=== PATIENT | female | born 1945 | race Caucasian/White ===

== ENCOUNTER 2018-05-06 13:32 | Inpatient (IN) | payer OTHER ==
--- NOTE | 2018-05-06 14:02 | EDPHY ---
H & P Stated Complaint: Anxiety Source: Patient Exam Limitations: No limitations - Medical/Surgical History Hx Asthma: No Hx Chronic Respiratory Disease: No Hx Diabetes: No Hx Cardiac Disease: No Hx Renal Disease: No Hx Cirrhosis: No Hx Alcoholism: No Hx HIV/AIDS: No Hx Splenectomy or Spleen Trauma: No Other PMH: HTN, Hypercholesterol, tonsillectomy, has half thyroid ( half removed ) - Social History Smoking Status: Never smoked Time Seen by Provider: 05/06/18 14:01 HPI/ROS: HPI: This is a 73-year-old female who presents with Chief Complaint: Depression and anxiety Location: psych Quality: Depression and anxiety Duration: Since February Signs and Symptoms: no shortness of breath at rest, no shortness of breath on exertion, no cough, no chest pain, no palpitations, no lower extremity edema, no wheezing, no orthopnea, no paroxysmal nocturnal dyspnea, no fever, no injury/ trauma, no hemoptysis, no carpal pedal spasms Timing: acute on chronic Severity: Severe Context: Patient has a history of depression anxiety over the last 15 years not managed by psychiatric medications or counseling outpatient presents today at the urging of the crisis Center and her primary care provider as she went to them today complaining of worsening severe depression, hopelessness, insomnia, grief stricken. Patient reports that she does not feel safe going home by herself. Reports that in February she went to a half-way 7 are and realized that she had no savings no for 1 K no Rule half-way plan and works paycheck to [employer]. She takes care of her alcoholic brother who lives with her. Patient went to the crisis Center today who then directed her to her primary care provider to obtain medication. She reports that her primary care provider called in Prozac but she has not picked this up yet. Well in the office patient began to breakdown in reported to her primary care provider that she could not go on living and did not want to live. She also voiced that she did not feel safe going home by herself so the provider sent her to the emergency room for further evaluation. Patient reports that she has been to counseling at [facility] but only 2 sessions and has not felt like has been of great benefit. She tried to obtain a psychiatrist based on her insurance and there was only 1 psychiatrist within her insurance but they would not take patient is older than 65 years old. Modifying Factors: Comment: ROS: A comprehensive 10 system review of systems is otherwise negative aside from elements mentioned in the history of present illness. MEDICAL/SURGICAL/SOCIAL HISTORY: Medical history: Hypothyroidism, postmenopausal, hypertension, hypercholesteremia. 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 Nonsmoker. CONSTITUTIONAL: Overweight, flat affect elderly white female, tidy, cooperative , awake and alert, no obvious distress HEENT: Atraumatic and normocephalic, PERRL, EOMI. Nares patent; no rhinorrhea; no nasal mucosal edema. Tympanic membranes clear. Oropharynx clear, no exudate and moist pink mucosa. Airway patent. No lymphadenopathy. No meningismus. Cardiovascular: Normal S1/S2, regular rate, regular rhythm, without murmur rub or gallop. PULMONARY/CHEST: Symmetrical and nontender. Clear to auscultation bilaterally. Good air movement. No accessory muscle usage. ABDOMEN: Soft, nondistended, nontender, no rebound, no guarding, no peritoneal signs, no masses or organomegaly. No CVAT. EXTREMITIES: 2/2 pulses, strength 5/5, no deformities, no clubbing, no cyanosis or edema. NEUROLOGICAL: no focal neuro deficits. GCS 15. SKIN: Warm and dry, no erythema. no rash. Good capillary refill. PSYCH: Fair eye contact, no flight of ideas, relatively organized thought process, poor insight and judgment, no auditory hallucinations, no visual hallucinations, no suicidal ideation with a plan, no homicidal ideation, no paranoia (Murdock,Terra) Constitutional: Initial Vital Signs Temperature (C) 36.6 C 05/06/18 13:37 Heart Rate 100 05/06/18 13:37 Respiratory Rate 16 05/06/18 13:37 Blood Pressure 146/70 H 05/06/18 13:37 O2 Sat (%) 95 05/06/18 13:37 O2 Delivery Mode Room Air Allergies/Adverse Reactions: codeine Allergy (Verified 05/06/18 13:37) Penicillins Allergy (Verified 05/06/18 13:37) Home Medications: Medication Instructions Recorded Atorvastatin Calcium [Lipitor 10 10 mg PO DAILY@1800 05/06/18 mg (*)] Levothyroxine [Synthroid 125 mcg 125 mcg PO DAILY06 05/06/18 (*)] Valsartan 320 mg PO 1200 05/06/18 amLODIPine BESYLATE [Amlodipine 10 mg PO 1200 05/06/18 Besylate] Medical Decision Making - Diagnostics EKG Interpretation: EKG interpreted by me reveals normal sinus rhythm, rate 89, no ST or T segment changes. Interpretation: normal EKG (Kathie Govea) ED Course/Re-evaluation: 3:00 p.m.-I assumed care of this patient at shift change. She presents on an M1 hold with suicidal ideation and severe depression. She has been medically cleared. Mental health evaluation pending. 10:00 p.m.-this patient has been seen by mental health. Plan to admit to [address] [place] [address], accepted by Dr. García. EMTALA completed. (Kathie Govea) 1420: Placed on M1 hold due to severe major depression and suicidal thoughts without a plan. Labs and UDS ordered. P. O. Ativan 1 mg given 1544: Labs reviewed. No signs of leukocytosis/anemia/platelet dysfunction/ ARCENIO. Potassium 3.1- given oral potassium supplementation 40 mEq; creatinine 0.8 1623: Notified by RN that patient just give urine sample in requesting diet. Regular diet ordered. 1630: Urine drug screen shows positive benzodiazepines. Medically clear for mental health evaluation. 1700: End of shift. Signed over to Dr. Govea pending mental health evaluation and final disposition. This patient was seen under the supervision of my secondary supervising physician. I evaluated care for this patient with attending. Discussed this patient with Dr. Duron who did not see the patient. (Gabrielle Robbins) Differential Diagnosis: Differential diagnosis includes but is not limited to major depression, anxiety disorder, schizophrenia, bipolar disorder, intoxicant use, suicidal ideation, psychosis, eliza. (Gabrielle Robbins) - Data Points Laboratory Results: Laboratory Results 05/06/18 15:05 05/06/18 15:05 05/06/18 05/06/18 15:05 15:00 Free T4 3.02 ng/dL H ng/dL (0.59-2.19) Thyroxine (T4) 18.80 ug/dL H ug/dL (5.53-11.00) Free T3 4.85 pg/mL pg/mL (2.77-5.27) Total T3 1.320 ng/mL ng/mL (0.970-1.690) T3 Uptake 42.2 % H % (23.5-40.6) Miscellaneous Test Pending Medications Given: Amlodipine Besylate (Norvasc) 10 mg PO DAILY [facility] Stop: 11/03/18 08:59 Last Admin: 05/07/18 09:30 Dose: 10 mg Atorvastatin Calcium (Lipitor) 10 mg PO DAILY [facility] Stop: 11/03/18 08:59 Last Admin: 05/07/18 09:29 Dose: 10 mg Lorazepam (Ativan) 0.5 mg PO Q6 PRN PRN Reason: Anxiety, Able to Take PO Stop: 11/03/18 00:14 Last Admin: 05/07/18 13:31 Dose: 0.5 mg Valsartan (Diovan) 320 mg PO DAILY [facility] Stop: 11/03/18 08:59 Last Admin: 05/07/18 09:30 Dose: 320 mg Discontinued Medications Fluoxetine HCl (Prozac) 10 mg PO DAILY [facility] Stop: 11/03/18 08:59 Last Admin: 05/07/18 09:30 Dose: 10 mg Gabapentin (Neurontin) 100 mg PO TID [facility] Stop: 11/03/18 08:59 Last Admin: 05/07/18 09:29 Dose: 100 mg Levothyroxine Sodium (Synthroid) 125 mcg PO ONCE ONE Stop: 05/07/18 08:39 Last Admin: 05/07/18 09:20 Dose: Not Given Lorazepam (Ativan) 1 mg PO EDNOW ONE Stop: 05/06/18 14:22 Last Admin: 05/06/18 14:54 Dose: 1 mg Potassium Chloride (Klor-Con) 40 meq PO ONCE ONE Stop: 05/06/18 15:45 Last Admin: 05/06/18 16:02 Dose: 40 meq Departure - Departure Disposition: [facility] IP Clinical Impression: Severe major depression without psychotic features Condition: Fair
[2018-05-06] MEDS ORDERED: LORazepam 1 MG TAB PO ONE (14:21)
[2018-05-06 15:22] LABS: PLATELET COUNT 357 10^3/uL (150-400)
[2018-05-06] MEDS ORDERED: POTASSIUM CL 20 MEQ TAB PO ONE (15:44)
--- NOTE | 2018-05-06 22:00 | ASMTTLCEVL ---
TLC Evaluation - Basic Information Evaluation Start Date and 05/06/2018 08:45 PM Time Hospital Status Answers: M1 Hold 72-hr M1 Hold Start Date 05/06/2018 02:20 PM and Time Patient statement Notes: Peri been suffering from anxiety and depression for 15 years. Narrative Notes: Pt is a 73 year old female who presented to [facility] voluntarily complaining of worsening depression and anxiety over the last 15 years, not manage by psychiatric medications or counseling services. Pt was urged by the crisis center and her PCP as she went to them today complaining of her worsening depression, feelings of hopelessness, insomnia and grief. Pt reports she does not feel safe going home by herself. Pt reported that in February she attended a seminar on shelter and she realized she was not going to be able to retire and has no savings, works [employer]. She stated, this threw me into a spin. I had thoughts of fear and terror. Pt stated since then, she has had panic attacks every day, multiple times throughout the day. Pt states sometimes when she is at work she will start to shake so bad, she will have to take a break and go walk. Pt reports in the past, she has experienced feelings of depression and anxiety and she would take a couple days off from work and then she would be fine but this, she says, is very different. She also takes care of her alcoholic brother who lives with her. Her PCP called in a prescription or Prozac today but she has not yet picked it up. Pt has tried to get an appt with a psychiatrist but has only found one who carried her insurance and they will not accept patients older than 65. Pt denied any current Si but stated, I have thought, How am I going to come out of this? If I ever lose my job, I will be on the streets. Diagnosis History Notes: Pt has never formally been dx with a mental illness but reports she believes she has been depressed and anxious for the past 15 years. Prior suicide attempts Notes: Pt denied any prior suicide attempts. Prior hospitalizations Notes: Pt denied any prior hospitalizations. Treatment Responses Notes: N/A History of violence Notes: Pt denied any HI. Therapist: Pt has attended two sessions at [facility] but did not find them helpful. Psychiatrist: None Medications (name, dosage, route, freq uency) Notes: valsartan 320mg 1x day; lipitor 10mg; levothyroxine 125mcg amlodopine 10mg Allergies/Reaction Notes: Penicillin and codeine sulfate Sleep Notes: Pt stated her sleep is disruptive and reports having great difficulty staying asleep every night. Appetite Notes: Pt reports a decreased appetite and has lost 20lbs since February. Medical/Surgical history Notes: hyper cholesterol, tonsillectomy, has half thyroid (half-removed) Substance use history (frequency, intensity, his tory, duration) Notes: Pt denied any substance use or etoh use. Pts bal was.0. Pts utox was positive for benzodiazepines but pt was administered Ativan in the emergency department. Family composition Notes: Pts parents are . She has 1 younger brother who lives with her and a younger sister who lives in [place]. Need for family Answers: No participation in patient's care Family psychiatric/substance abuse history Notes: Pt stated she has a cousin who was an alcoholic and her brother is an alcoholic. Developmental history Notes: Pt grew up in [place] and reported having a very close relationship with her parents. Her younger brother had a disability and just two years ago and her sister is def. Pt states she spent most of her life caring for other people. Abuse concerns Answers: Past Marital status/children Notes: Pt never and has no children. Living situation Notes: Pt lives in [place] with her brother. Sexual history/orientation Notes: Unable to asses. Peer support/family strengths Notes: Pt stated she has no friends. Her only support is her brother who lives with her. Education level/history Notes: Pt has a nursing degree from [employer]. 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 Notes: None reported. 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 Collateral Notes: None Patient's strengths Answers: Artistic/Creative/Musical (Please select at least TWO strengths): Motivated for Treatment Willingness TLC Evaluation - Mental Status Exam Appearance: Answers: Appropriate Eye Contact: Answers: Good/Direct Mood: Answers: Sad Affect: Answers: Appropriate Behavior: Answers: Cooperative Anxious Speech: Answers: Relevant Logical Clear Coherent Thought Process: Answers: Organized Oriented Alert Intact Insight: Answers: Good Judgement: Answers: Good Depression Answers: Diminished Pleasure Signs/Symptoms: Hopelessness Sad Mood Anxiety Signs/Symptoms Answers: Generalized Anxiety Panic Attacks Hallucinations: Answers: None Pt reported to have Answers: No suicidal/self-injuring ideation/behavior? Pt reported to be making Answers: No suicidal/self-injuring threats? Pt reported to have Answers: No aggression/assault ideation/behavior? Pt exhibits inability to Answers: No care for self/grave disability? Ideation/behavior is Answers: Yes chronic? Patient has a specific Answers: No plan? Pt has access to means to Answers: No execute the plan? Ideation involves Answers: No serious/lethal intent? Ideation has Answers: No delusional/hallucinatory content? History of Answers: No suicidal/self-injuring ideation, behavior, or threats? History of Answers: No aggressive/assaultive ideation, behavior, or threats? History of serious Answers: No physical harm to self/others while in treatment setting? TLC Evaluation - Suicide/Homicide Risk Suicide Risk Factors: Answers: Anxiety/Panic, Severe Hopelessness Lack of Social Support Major Depression Single Unstable Living Situation Homicide/violence risk Answers: None factors: Current Suicidal Answers: No Ideation? Current Suicidal Ideation Answers: Yes in the Past 48 Hours? Current Suicidal Ideation Answers: No in the Past Month? Suicide Internal Answers: Absence of Psychosis Protective Factors: Mosque Beliefs Suicide External Answers: None Protective Factors: Ranking of patient's Answers: Moderate suicidal risk: Ranking of patient's Answers: Low homicidal risk: TLC Evaluation - Wrap-up AXIS I Diagnosis (include DSM-V and ICD-10 codes), must also be entered in [employer], which is the source of truth. Notes: Generalized Anxiety Disorder 300.02 (F41.1) Major Depressive Disorder, single episode, severe 296.23 (F32. In consultation with [facility] ED physician, Kathie Govea MD and on-call psychiatrist, Amanda García MD, both concurred that pt appears to meet 27-65 criteria requiring psychiatric hospitalization as pt appears to be at risk of harm to self due to a mental illness condition. Pt was given the 3N prohibited belongings list while in the ED. Evaluation End Date and 05/06/2018 10:00 PM Time (HH:MM): Date Signed: 05/06/2018 09:59 PM Electronically Signed By:Autumn Menjivar
--- NOTE | 2018-05-06 22:01 | ASMTTCLDSP ---
TLC Discharge Disposition Disposition: Answers: Admit Discharge Concerns/Recommendations: Notes: In consultation with [facility] ED physician, Kathie Govea MD and on-call psychiatrist, Amanda García MD, both concurred that pt appears to meet 27-65 criteria requiring psychiatric hospitalization as pt appears to be at risk of harm to self due to a mental illness condition. Pt was given the 3N prohibited belongings list while in the ED. Was patient given the Answers: Yes Inpatient Behavioral Health Prohibited Belongings List while in the ED? For inpatient Amanda García MD admission, the following psychiatrist agreed to accept patient for admission to Behavioral Health ([facility]): Date Signed: 05/06/2018 10:00 PM Electronically Signed By:Autumn Menjivar
--- NOTE | 2018-05-06 22:29 | CPEKG ---
Test Reason : OPEN Blood Pressure : / mmHG Vent. Rate : 089 BPM Atrial Rate : 090 BPM P-R Int : 125 ms QRS Dur : 089 ms QT Int : 360 ms P-R-T Axes : -05 029 001 degrees QTc Int : 439 ms Sinus rhythm Confirmed by Kathie Martin ([id number]) on 05/06/2018 10:29:07 PM Referred By: KATHIE MARTIN Confirmed By:Kathie Martin
[2018-05-07] MEDS ORDERED: LORazepam 0.5 MG TAB PO PRN ×2 (00:15→08:42)
[2018-05-07] MEDS ORDERED: MAG HYDROX/AL HYDROX/SIMETH 30 ML UDCUP PO PRN (00:15)
[2018-05-07] MEDS ORDERED: MAGNESIUM HYDROXIDE 30 ML UDCUP PO PRN (00:15)
[2018-05-07] MEDS ORDERED: ACETAMINOPHEN 325 MG TAB PO PRN (00:15)
[2018-05-07] MEDS ORDERED: NICOTINE POLACRILEX 2 MG GUM B PRN (00:15)
[2018-05-07] MEDS ORDERED: OLANZapine DISINTEGR 5 MG TAB PO PRN (00:15)
--- NOTE | 2018-05-07 06:22 | ASMTBHMTP ---
Master Treatment Plan Master Treatment Plan Answers: Depressed Mood without for: Suicidal Ideation Date: 05/07/2018 Diagnosis on Admission: Major Depressive Disorder, Single Episode, Severe 296.23 (F32); KEVIN 300.02 (F41.1) Expected length of stay: 3-5 days Reason for admission: Notes: Per Report: Pt is a 73 year old female who presented to [facility] voluntarily complaining of worsening depression and anxiety over the last 15 years, not manage by psychiatric medications or counseling services. Pt was urged by the crisis center and her PCP as she went to them today complaining of her worsening depression, feelings of hopelessness, insomnia and grief. Pt reports she does not feel safe going home by herself. Pt reported that in February she attended a seminar on longterm and she realized she was not going to be able to retire and has no savings, works paycheck to [employer]. She stated, this threw me into a spin. I had thoughts of fear and terror. Pt stated since then, she has had panic attacks every day, multiple times throughout the day. Pt states sometimes when she is at work she will start to shake so bad, she will have to take a break and go walk. Pt reports in the past, she has experienced feelings of depression and anxiety and she would take a couple days off from work and then she would be fine but this, she says, is very different. She also takes care of her alcoholic brother who lives with her. Her PCP called in a prescription or Prozac today but she has not yet picked it up. Pt has tried to get an appt with a psychiatrist but has only found one who carried her insurance and they will not accept patients older than 65. Pt denied any current Si but stated, I have thought, How am I going to come out of this? If I ever lose my job, I will be on the streets. Patient's stated presenting problems: Notes: "I [am] experiencing anxiety attacks and depression." Patient's goals for treatment: Notes: "[to] get rid of negative thoughts including 'fears'." Patient's strengths: Notes: "I am good at using my coping skills." Identify supports outside of hospital: Notes: Work friends and supports Discharge criteria: Notes: Suicidal Ideation will resolve and patient will have a plan to safely manage recurrent suicidal ideation. Initial disposition plan/considerations: Notes: Return home and to work Master Treatment Plan Required Signatures Psychiatrist signature: Answers: Psychiatrist: RN on-shift signature: Answers: RN: Patient signature: Answers: Patient: Date Signed: 05/07/2018 06:21 AM Electronically Signed By:Jeromy Johnson
[2018-05-07] MEDS ORDERED: LEVOTHYROXINE 137 MCG TAB PO ONE (08:38)
[2018-05-07] MEDS ORDERED: GABAPENTIN 100 MG CAP PO SCH (09:00)
[2018-05-07] MEDS ORDERED: FLUoxetine 10 MG CAP PO SCH (09:00)
[2018-05-07] MEDS: ATORVASTATIN CALCIUM 10 MG TAB PO SCH (09:29)
[2018-05-07] MEDS: VALSARTAN 160 MG TAB PO SCH (09:30)
[2018-05-07] MEDS: amLODIPine BESYLATE 5 MG TAB PO SCH (09:30)
--- NOTE | 2018-05-07 09:54 | BAPA ---
DATE OF SERVICE: 05/07/2018 CHIEF COMPLAINT: "Could no longer cope with my anxiety." HISTORY OF PRESENT ILLNESS: From the ED note dated 05/06/2018, patient with a history of depression and anxiety not managed by psychiatric medications presented to the emergency room at the urging of the Crisis Center and her primary care provider. Patient reported not feeling safe going home by herself. Patient was admitted involuntarily on an M1 hold due to being a danger to herself. Patient was hospitalized for safety, crisis stabilization, and medication evaluation. CIRCUMSTANCES THAT LED TO CURRENT HOSPITALIZATION: Patient reports exacerbation of depression and anxiety, feeling hopeless, insomnia, and grief. Patient reported that in February of 2018 she attended a seminar on jail, and she realized she was not going to be able to retire, has no savings, and works [email or web address] to [employer]. Patient reports this "threw me into a spin." Patient reported thoughts of fear and terror. Patient reports since then she has had panic attacks every day multiple times throughout the day. Patient states that sometimes when she is at work she begins shaking and has to take a break and go for a walk. Patient reports a history of depression and anxiety for 15 years. Patient reports she has never been formally diagnosed with a mental illness. Patient reports using no alcohol or other substances prior to her hospitalization. Patient reports sleeping only 4 hours per night. Reports she wakes up in the middle of the night, usually around 1 a.m., and begins to worry, ruminate, and is unable to sleep, and patient reports recent weight loss of 20 pounds since 2017. Patient describes current anxiety symptoms as excessive anxiety lasting more days than not for at least the last 6 months. Reports she finds it difficult to control her worry, is restless, easily keyed up, easily fatigued, difficulty concentrating, and sleep disturbance. Patient reports no history of abuse. Patient denies other psychiatric symptoms, including symptoms of depression, eliza, ADHD, OCD, PTSD, psychosis, and any other symptom of psychiatric disorder. 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 Patient reports having anxiety and panic attacks during work , is unable to function, has to leave work and go for a walk in order to return to work. Patient reports she currently has no friends. She goes to work, to the grocery store, and to doctor appointments and has no social support or support system. Patient reports she currently lives with her brother who abuses alcohol. She states she does get along well with her brother and reports she has 2 sisters who are out of state, and she is in contact with them periodically. Patient reports hobbies as reading and crossword puzzles and states she is unable to engage in these hobbies due to inability to concentrate. Patient states she is not generally satisfied with her life. Patient denies current suicidal ideation and reports protective factors or reasons to live as her scientology and family. Patient reports future goals as to get in touch with the case management social worker and work on jail planning. Patient reports she currently has no support network. Patient denies current homicidal ideation. Denies current self-injurious ideation. Patient reports she currently does not see a provider for psychiatric treatment on an outpatient basis and reports she has gone to a few counseling sessions through her employment at . Patient reports her primary care provider is Zia Diego with [employer] in [place], [place]. PAST PSYCHIATRIC HISTORY: The patient describes to this EMBOSSING PRESS OPERATOR the following psychiatric history: The patient reports no previous diagnoses of psychiatric conditions. Patient reports in the past a trial of Zoloft and reports she had no benefit from this medication for anxiety. Patient denies any history of psychiatric hospitalizations. Reports no history of withdrawal from drugs or alcohol. Patient reports no history of suicide attempts, no history of self- injurious behavior, and no history of trauma or abuse. ALLERGIES: 1. Codeine. 2. Penicillins. CURRENT MEDICATIONS: 1. Valsartan 320 mg p.o. q. day. 2. Ativan 0.5 mg p.o. q.6 hours p.r.n. 3. Gabapentin 100 mg p.o. t.i.d. 4. Prozac 10 mg p.o. q. day. 5. Lipitor 10 mg p.o. q. day. 6. Norvasc 10 mg p.o. q. day. 7. Tylenol 650 mg p.o. q.4 hours p.r.n. PAST MEDICAL HISTORY: Patient reports a history of high cholesterol, tonsillectomy, and has had half of her thyroid removed. Patient reports no history of neurological conditions, including organic brain disease, traumatic brain injury, or concussions. Patient reports no other history of major illnesses or major hospitalizations. SOCIAL HISTORY: Patient reports she was born and raised in [place] and reports having a close relationship with her parents. Patient had a younger brother with a disability, and patient's brother 2 years ago. Patient reports she has spent the majority of her life caring for other people, and she currently resides with her brother who abuses alcohol. Patient reports both her parents are . She has 1 younger brother who lives with her and a younger sister who lives in [place]. The patient reports also having a sister who resides in [place]. Patient reports she has never been and has no children. Currently lives in [place] with her brother. Patient states she has no friends and her only support is her brother who lives with her currently. 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 Patient reports no history of legal problems. 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 Patient reports she does enjoy reading and doing crossword puzzles. SUBSTANCE USE HISTORY: Patient reports no history of substance use or alcohol use. Patient's blood alcohol level at time of admission was 0. Patient's U- Tox was positive for benzodiazepines, and patient was administered Ativan in the emergency department. FAMILY PSYCHIATRIC HISTORY: Patient reports she has a cousin who abuses alcohol , and her brother whom she currently lives with also abuses alcohol. The patient reports no other family psychiatric history. ADMISSION LABS AND STUDIES: 1. CBC: Within normal limits except eosinophils were low at 0.5. 2. BMP: Within normal limits except potassium was low at 3.1, glucose was elevated at 105. 3. Hemoglobin A1c: Pending. 4. Liver function: Within normal limits except total bilirubin was elevated at 1.6, unconjugated bilirubin is elevated at 1.2. 5. Lipid panel: Triglycerides elevated at 138, cholesterol risk factor elevated at 1.6, LDL cholesterol calculated elevated at 141, LDL risk factor elevated at 1.2, VLDL cholesterol elevated at 28, non-HDL cholesterol elevated at 169, HDL cholesterol low at 38, LDL/HDL ratio is elevated at 3.72. Cholesterol/HDL ratio elevated at 5.45. 6. TSH: Low at 0.026. 7. Toxicology screen: Nonnegative for benzodiazepines, negative for all other substances screened, negative for ethyl alcohol. MENTAL STATUS EXAM: The patient is a well-nourished female looking stated chronological age. Attire is appropriate. Dress is hospital garb. Grooming status is appropriate. Ambulation is independent. Gait is normal and coordinated. Posture is normal and relaxed. Eye contact is appropriate and adequate. Motor activity is appropriate with purposeful, organized, coordinated movements with no involuntary movements noted. Attitude is cooperative and friendly. Patient appears attentive and relates well to this interviewer. Language production is spontaneous. Rate, rhythm, and volume are normal. Articulation is clear. Patient reports mood as anxious with congruent affect. Patient's thought process is linear and logical with no loose associations, tangential thought, thought blocking, concrete thinking, or any other signs of formal thought disorder. The patient does not report suicidal, homicidal thoughts, ideas, or plans. Patient denies auditory, visual hallucinations. Patient denies delusions. Patient does not appear to be attending to internal stimuli. Patient is oriented to person, place, time, and situation. Patient's attention and concentration are fair. The patient's insight and judgment are fair. There is no evidence of gross cognitive dysfunction at any point during the interview and no apparent dysfunction in recent or remote memory noted. The patient does not report undesirable side effects from current medications. DIAGNOSES: Based on the patient's history and current presentation, patient's diagnoses are: 1. Generalized anxiety disorder. 2. Rule out major depressive disorder with anxious distress. FORMULATION: Patient is a 73-year-old female, single, employed at , living in [place] with her brother who presents to the hospital involuntarily due to the risk to harm herself and is currently on an M1 hold. Patient requires continued inpatient care because of current severe anxiety and recent reports of the inability to feel safe at home. The patient presents with problems of increased stressors, severe anxiety, reports of depression at time of admission in the emergency room that have steadily been increasing over the past several months. Patient's life has been affected by these problems, including inability to feel safe alone. The exacerbation of symptoms was preceded by increased stressors regarding patient's financial situation for jail. Patient has no past formal psychiatric history. Patient is a high safety risk due to current severe anxiety and inability to feel safe. Protective factors while hospitalized include ongoing safety checks, active involvement in treatment, and support from our treatment team. Patient could benefit from inpatient hospitalization for safety, crisis stabilization, and medication evaluation. PLAN: 1. Psychotropic medications: After reviewing options, risks, and benefits with the patient, patient agrees to continue current medications listed above. No other medication changes at this time as more time is needed to determine ongoing tolerability and efficacy. Plan is to continue to observe patient for response and side effects from medications, and ongoing monitoring and evaluation. 2. Review with patient informed consent and recommendations for psychotropic medication treatment listed below 3. Labs: no additional labs at this time 4. Therapy: continue milieu and group therapy 5. Further investigation including gathering information from patients relatives and review of past case records to inform treatment plan. 6. Safety/Wellness plan and follow-up outpatient appointments to be established prior to discharge. Next steps are for patient to meet with home health care respiratory therapist to plan a safe discharge plan and establish outpatient services for ongoing treatment. 7. Confer with inpatient treatment team regarding treatment plan. 8. Address psychosocial stressors by meeting with primary care sales representative to establish discharge plan including referrals for outpatient services. 9. Legal status: M1 10. Consider discharge on Saturday if patient is in stable condition, safe, and has a safe discharge plan. ESTIMATED LENGTH OF STAY: 1-3 days PSYCHOTROPIC MEDICATION TREATMENT INFORMED CONSENT and RECOMMENDATIONS: Review nature of condition, diagnosis, and prognosis. Review nature and purpose of psychotropic medication treatment. Review type of psychotropic medications being ordered. Review risk and benefits of psychotropic medication treatment. Review probable length of time will need to take medications. Review risk and benefits of not undergoing psychotropic medication treatment. Review alternative treatments to psychotropic medications. Review psychotropic medications contraindications, drug-drug interactions, side effects, and importance of reporting any side effects to a psychiatric provider or nurse during inpatient hospitalization, and upon discharge to patients psychiatric outpatient provider, primary care provider, or other health doggy daycare activities director. Review importance of asking a nurse, psychiatric provider, or primary care provider any questions or problems concerning the psychotropic medications. Verify patient understands the information that has been provided, and understands, accepts, and agrees to psychotropic medications. Review patients safety plan and importance of patient to communicate to staff while hospitalized if patient is ever a danger to self/others, or unable to care for self, and upon discharge, the importance for patient to contact [facility] [place] [facility] or [facility], or go to the nearest emergency room, if patient is ever a danger to self/others, or unable to care for self. Recommend that upon discharge patient establish medication management treatment with a psychiatric provider, establishes routine therapy appointments, and follow-up with primary care provider. Verify patient understands and agrees to these recommendations. /[id number]/MODL MTDD
--- NOTE | 2018-05-07 23:41 | BCON ---
INTERNAL MEDICINE CONSULTATION DATE OF CONSULTATION: 05/07/2018 REASON FOR REFERRAL: Medical clearance for inpatient behavioral health stay. HISTORY OF PRESENT ILLNESS: This patient came to the emergency department yesterday complaining of worsening depression and anxiety and not feeling safe to go home. She was referred by a mental health crisis center and her primary care provider. She was evaluated by the mental health team and admitted for further psychiatric care. Today she is complaining of anxiety. PAST MEDICAL HISTORY: 1. Hypothyroidism. 2. Thyroid nodules. 3. Hypertension. 4. Dyslipidemia. PAST SURGICAL HISTORY: She has had tonsillectomy and a partial thyroidectomy. MEDICATIONS PRIOR TO ADMISSION: 1. Amlodipine 10 mg p.o. daily at noon. 2. Valsartan 320 mg p.o. daily at noon. 3. Levothyroxine 125 mcg p.o. daily. 4. Atorvastatin 10 mg p.o. daily at 1800. SOCIAL HISTORY: She lives with her brother. 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 She is a nonsmoker and nondrinker. FAMILY HISTORY: Noncontributory. REVIEW OF SYSTEMS: She denies any symptoms consistent with hyperthyroidism. She does not feel hot. She is not sweaty. She does not have increased appetite. She does not have increased rate of defecation. She does not have a tremor. She reports approximately a 20-pound weight loss since February with reduced food and fluid intake. She has had reduced bowel movements and reduced urination as a result. She is not in pain. She denies cough or dyspnea. She denies nausea or vomiting. She denies palpitations or chest pain. She denies joint swelling or joint pain. She denies skin rash or skin breakdown. She has not experienced muscle weakness. Otherwise, a 10-point review of systems is negative. PHYSICAL EXAM: VITAL SIGNS: Blood pressure is 136/60, heart rate is 99, respiratory rate is 14, oxygen saturation is 93% on room air, temperature is 36.8 degrees centigrade. Her weight is 86.2 kg for a body mass index of 34.8. GENERAL: This is an obese woman dressed in hospital gown, sitting in a chair, cooperative and in no acute distress. HEENT: Extraocular movements are intact. Pupils are equal, round, and reactive to light. Mucous membranes are moist. Dentition is in good condition. NECK: Supple. There is no thyromegaly. The thyroid is palpable on the left but not on the right side of her neck. HEART: There is regular rate and rhythm. Heart sounds are distant. LUNGS: Clear to auscultation bilaterally. ABDOMEN: Benign. EXTREMITIES: There is no cyanosis or clubbing. There is trace edema bilaterally pretibially. NEUROLOGIC: She is alert and oriented x3. Cranial nerves 2-12 are grossly intact. There is no focal weakness, and sensation is intact to light touch. LABORATORY STUDIES: From yesterday and today, CBC was overall normal. She had a slight decrement of eosinophils of no clinical significance. Serum chemistry revealed hypokalemia with a potassium of 3.1. Otherwise renal function and electrolytes were normal. Glucose was slightly high at 105. Hemoglobin A1c was high at 6.4, total bilirubin was high at 1.6, and unconjugated bilirubin was slightly high as well at 1.2. Liver function tests were otherwise normal. Lipid panel revealed a slightly elevated triglycerides at 138, a normal cholesterol at 207, an elevated LDL at 141, and a low HDL at 38. TSH was suppressed at 0.26, free T4 was slightly high at 3.02, and T4 was significantly high at 18.8. Toxicology screen in the serum was negative for ethyl alcohol, and urine was non-negative for benzodiazepines but otherwise negative for substances of abuse. ASSESSMENT AND RECOMMENDATIONS: 1. Mental health issues pending further evaluation and management per Psychiatry and the mental health team. 2. Hypertension, adequately controlled. 3. Hypothyroidism with likely iatrogenic hyperthyroidism. With her history of thyroid nodules it is conceivable that she has an overactive nodule that was not palpable on exam which along with her thyroid supplementation would make her hyperthyroid. Alternately due to her depression and weight loss she may now be receiving a higher thyroid dose than she should. I am going to resume her thyroid medication with levothyroxine at 100 mcg daily instead of 125 mcg and advise that she follow up in 4-6 weeks with her primary care provider regarding her optimal dose. I have also ordered a thyroglobulin test which is referral test to be done by mass spectroscopy at the [facility]. If she has a low thyroglobulin it is consistent with taking too much thyroid hormone. If she has a normal or high thyroglobulin it is more consistent with endogenous excess thyroid production. In that case, she would be best treated by discontinuing her levothyroxine and referral to an floral arranger for further evaluation. It is conceivable that her hyperthyroidism is contributing to her anxiety symptoms. 4. Dyslipidemia. Appears to be inadequately managed at present with a high LDL cholesterol of 141. She should consider increasing her atorvastatin dose. This can be done by her primary care provider after her discharge. 5. Prediabetes. It could be that when she was 20 pounds heavier she had emily diabetes mellitus type 2. Encouraged increased exercise which would also improve her lipid panel and advised consultation with the dietitian regarding weight loss. 6. Hypokalemia of unclear etiology. May be related to hyperadrenergic state due to her mental health condition or due to excess thyroid hormone. I have ordered a repeat basic metabolic profile for tomorrow morning to evaluate whether she continues to be hypokalemic. I see no medical contraindications to this patient's continued stay on the inpatient behavioral health unit or to any psychiatric medications or procedures. Thank you very much for including me in the care of this patient and please do not hesitate to contact me or the hospitalist service should there be need for further medical evaluation. /[id number]/MODL MTDD
[2018-05-08] MEDS: LEVOTHYROXINE 100 MCG TAB PO SCH (05:59)
[2018-05-08] MEDS ORDERED: LEVOTHYROXINE 125 MCG TAB PO SCH (06:00)
[2018-05-08] MEDS: ESCITALOPRAM OXALATE 10 MG TAB PO SCH ×2 (08:35→13:01)
[2018-05-08] MEDS: VALSARTAN 160 MG TAB PO SCH ×3 (09:53→13:25)
--- NOTE | 2018-05-08 11:28 | SOAPPROG ---
SOAP Progress Note Assessment/Plan: Assessment: Generalized Anxiety Disorder. R/O Major Depressive Disorder with Anxious Distress. Continued severe anxiety. No improvement noted. (see subjective/ objective note). Patient could benefit from continued inpatient hospitalization for crisis stabilization, safety, and medication evaluation. Consider discharge tomorrow if patient is stable and has a safe discharge plan. Plan: 1. Psychotropic medications: After reviewing options, risks, and benefits patient agrees to continue current medications. No medication changes at this time as more time is needed to determine ongoing tolerability and efficacy. Plan is to continue to observe patient for response and side effects from medications, and ongoing monitoring and evaluation. 2. Review with patient informed consent and recommendations for psychotropic medication treatment listed below 3. Labs: no additional labs at this time 4. Therapy: continue milieu and group therapy 5. Further investigation including gathering information from patients relatives and review of past case records to inform treatment plan. 6. Safety/Wellness plan and follow-up outpatient appointments to be established prior to discharge. Next steps are for patient to meet with home health care coordinator to plan a safe discharge plan and establish outpatient services for ongoing treatment. 7. Confer with inpatient treatment team regarding treatment plan. 8. Psychosocial stressors addressed through director case management 9. Legal status: M1 10. Consider discharge on Saturday if patient is in stable condition, safe, and has a safe discharge plan. PSYCHOTROPIC MEDICATION TREATMENT INFORMED CONSENT and RECOMMENDATIONS: Review nature of condition, diagnosis, and prognosis. Review nature and purpose of psychotropic medication treatment. Review type of psychotropic medications being ordered. Review risk and benefits of psychotropic medication treatment. Review probable length of time patient will need to take medications. Review risk and benefits of not undergoing psychotropic medication treatment. Review alternative treatments to psychotropic medications. Review psychotropic medications contraindications, drug-drug interactions, side effects, and importance of reporting any side effects to a psychiatric provider or nurse during inpatient hospitalization, and upon discharge to patients psychiatric outpatient provider, primary care provider, or other health home care chaplain. Review importance of asking a nurse, psychiatric provider, or primary care provider any questions or problems concerning the psychotropic medications. Verify patient understands the information that has been provided, and understands, accepts, and agrees to psychotropic medications. Review patients safety plan and importance of patient to report to staff while hospitalized if patient is ever a danger to self/others, or unable to care for self, and upon discharge, the importance for patient to contact [facility] or [facility], or go to the nearest emergency room, if patient is ever a danger to self/others, or unable to care for self. Recommend that upon discharge patient establish medication management treatment with a psychiatric provider, establishes routine therapy appointments, and follow-up with primary care provider. Verify patient understands and agrees to these recommendations. 05/08/18 11:27 Subjective: Following up with patient for evaluation of depression, anxiety, and safety. Patient reports, "Feel so anxious, not sure what I am going to do about all of this." Patient expresses the following psychiatric symptoms severe anxiety. Patient reports taking medications as prescribed, and describes response to medications as poor. Patient reports feeling "light headed, dizzy" after taking Gabapentin 100 mg and Prozac 10 mg, and requests to discontinue these medications. This CHANNELER discusses psychotropic medication options, risks, and benefits with the patient. Patient agrees to trial of Lexapro 10 mg po QD. Patient describes getting 8 hours of sleep, and reports feeling rested. Objective: Vital Signs Temp Pulse Resp BP Pulse Ox 36.4 C 87 14 112/57 L 95 05/08/18 06:00 05/08/18 10:01 05/08/18 06:00 05/08/18 10:01 05/08/18 10:01 NURSING REPORT: Consulted with nursing for update on patients progress in treatment. Nurses report patient is engaged in treatment, is attending groups, slept 8 hours, expresses the following psychiatric symptoms: anxious, exhibits the following psychiatric symptoms: none, is eating all meals, is agreeable to medications and taking as prescribed with no report of side effects, with no s/ s of EPS/akathisia, and denies SI/HI, denies A/V hallucinations, and denies delusions. MSE: The patient presents casually dressed and with good hygiene, and looks stated age. Patient is sitting, posture is upright, and position is relaxed. Patient appears awake, alert, and responds appropriately and reasonably during interview. Patient is engaged, relates well to interviewer, and emotional facial expression is appropriate to situation and changes appropriately with topic. Patient is cooperative, makes comfortable eye contact, and movements are voluntary, deliberate, coordinated, and smooth and even with no inappropriate movements. Patient makes laryngeal sounds effortlessly and shares conversation appropriately; pace of conversation is appropriate, and stream of talking is fluent; articulation is clear and understandable; word choice is effortless and appropriate for education level; completes sentences, occasionally pausing to think; rate and volume are appropriate for interview and setting. Patient reports mood as anxious. Patients affect is congruent with mood. Patient has linear and logical thinking, with no loose associations , tangential thought, thought blocking, concrete thinking, or any other signs of formal thought disorder. Patient denies suicidal and homicidal ideation, and denies hallucinations and delusions. Patient appears to be a reliable historian with sound judgement and good insight into current condition. Patient has no apparent dysfunction in recent or remote memory noted, and no evidence of gross cognitive dysfunction noted at any point during the interview. - Time Spent With Patient Time Spent With Patient: 15 minutes, met with patient individually. - Pending Discharge Pending Discharge Within 24 Hours: No Pending Discharge Within 48 Hours: No ICD10 Worksheet Patient Problems: Problems Problem Status Onset Severe major depression without psychotic features Acute
[2018-05-08] MEDS ORDERED: amLODIPine BESYLATE 5 MG TAB PO SCH (12:30)
[2018-05-08] MEDS ORDERED: VALSARTAN 160 MG TAB PO SCH (12:30)
[2018-05-08] MEDS: amLODIPine BESYLATE 5 MG TAB PO SCH ×2 (12:59→13:26)
[2018-05-08] MEDS: ATORVASTATIN CALCIUM 10 MG TAB PO SCH ×2 (13:29→19:59)
[2018-05-09] MEDS: LEVOTHYROXINE 100 MCG TAB PO SCH (05:58)
[2018-05-09] MEDS ORDERED: clonazePAM 0.5 MG TAB PO ONE (07:49)
[2018-05-09] MEDS: ESCITALOPRAM OXALATE 10 MG TAB PO SCH (08:24)
--- NOTE | 2018-05-09 08:32 | ASMTCMCOM ---
CM Note CM Note Notes: CC met with ct. who presented as very anxious and helpless. Ct. reported that she is not doing well due to anxiety. CC discussed setting up an appointment with PCP Dr. Diego ahead of discharge so that PCP can continue to prescribe meds. Ct. refused to sign NEGRITO and/or scheduling an appointment saying that she exhausted her sick time and cannot take any time off. CC explained that ct. would need to set up an appointment and ct. agreed to do it after discharge. Ct. has an appointment with her [facility] therapist Ifrah on 05/15. Ct. also discussed not having any friends or people who care for her. She said that she needs someone who would be her friend and come meet with her at home. She said that CC Denys gave her the number to [facility] services. This CC encouraged ct. to call and follow up with them but she refused saying that she is too anxious. Discharge Plan: ct. will meet with her therapist Ifrah on 05/15. Date Signed: 05/09/2018 08:31 AM Electronically Signed By:Haleigh Arshad
--- NOTE | 2018-05-09 11:06 | SOAPPROG ---
SOAP Progress Note Assessment/Plan: Assessment: Generalized Anxiety Disorder. R/O Major Depressive Disorder with Anxious Distress. Continued severe anxiety. No improvement noted. (see subjective/ objective note). Patient could benefit from continued inpatient hospitalization for crisis stabilization, safety, and medication evaluation. Plan: 1. Psychotropic medications: After reviewing options, risks, and benefits patient agrees to continue current medications. DC Klonipin and restart Ativan 0.5 mg po Q6HRS PRN. No other medication changes at this time as more time is needed to determine ongoing tolerability and efficacy. Plan is to continue to observe patient for response and side effects from medications, and ongoing monitoring and evaluation. 2. Review with patient informed consent and recommendations for psychotropic medication treatment listed below 3. Labs: no additional labs at this time 4. Therapy: continue milieu and group therapy 5. Further investigation including gathering information from patients relatives and review of past case records to inform treatment plan. 6. Safety/Wellness plan and follow-up outpatient appointments to be established prior to discharge. Next steps are for patient to meet with care assistant to plan a safe discharge plan and establish outpatient services for ongoing treatment. 7. Confer with inpatient treatment team regarding treatment plan. 8. Psychosocial stressors addressed through binder caser 9. Legal status: voluntary 10. Consider discharge on Saturday if patient is in stable condition, safe, and has a safe discharge plan. PSYCHOTROPIC MEDICATION TREATMENT INFORMED CONSENT and RECOMMENDATIONS: Review nature of condition, diagnosis, and prognosis. Review nature and purpose of psychotropic medication treatment. Review type of psychotropic medications being ordered. Review risk and benefits of psychotropic medication treatment. Review probable length of time patient will need to take medications. Review risk and benefits of not undergoing psychotropic medication treatment. Review alternative treatments to psychotropic medications. Review psychotropic medications contraindications, drug-drug interactions, side effects, and importance of reporting any side effects to a psychiatric provider or nurse during inpatient hospitalization, and upon discharge to patients psychiatric outpatient provider, primary care provider, or other health healthcare economics consultant. Review importance of asking a nurse, psychiatric provider, or primary care provider any questions or problems concerning the psychotropic medications. Verify patient understands the information that has been provided, and understands, accepts, and agrees to psychotropic medications. Review patients safety plan and importance of patient to report to staff while hospitalized if patient is ever a danger to self/others, or unable to care for self, and upon discharge, the importance for patient to contact [facility] or 911, or go to the nearest emergency room, if patient is ever a danger to self/others, or unable to care for self. Recommend that upon discharge patient establish medication management treatment with a psychiatric provider, establishes routine therapy appointments, and follow-up with primary care provider. Verify patient understands and agrees to these recommendations. 05/09/18 11:09 Subjective: Following up with patient for evaluation of anxiety and safety. Patient reports , "Still feel really anxious. Just don't think I can cope. Just want to sign a piece a paper and leave all this to someone else. Feeling overwhelmed, don't think I can do this." Patient expresses the following psychiatric symptoms severe anxiety. Patient reports taking medications as prescribed, and describes response to medications as poor. Patient reports feeling sedated from Klonopin, and reports better response from Ativan. Patient agrees to DC Klonipin and start Ativan 0.5 mg po Q6HRS PRN. Patient agrees to continue Lexapro 10 mg po QD. Objective: Vital Signs Temp Pulse Resp BP Pulse Ox 36.6 C 89 16 131/62 H 93 05/09/18 06:00 05/09/18 06:00 05/09/18 06:00 05/09/18 06:00 05/09/18 06:00 Laboratory Results 05/08/18 06:00 NURSING REPORT: Consulted with nursing for update on patients progress in treatment. Nurses report patient is engaged in treatment, is attending groups, slept 8 hours, expresses the following psychiatric symptoms: anxious, exhibits the following psychiatric symptoms: none, is eating all meals, is agreeable to medications and taking as prescribed with no report of side effects, with no s/ s of EPS/akathisia, and denies SI/HI, denies A/V hallucinations, and denies delusions. TREATMENT TEAM CONSENSUS: Patient is not stable and could benefit from continued hospitalization. MSE: The patient presents casually dressed and with good hygiene, and looks stated age. Patient is sitting, posture is upright, and position is relaxed. Patient appears awake, alert, and responds appropriately and reasonably during interview. Patient is engaged, relates well to interviewer, and emotional facial expression is appropriate to situation and changes appropriately with topic. Patient is cooperative, makes comfortable eye contact, and movements are voluntary, deliberate, coordinated, and smooth and even with no inappropriate movements. Patient makes laryngeal sounds effortlessly and shares conversation appropriately; pace of conversation is appropriate, and stream of talking is fluent; articulation is clear and understandable; word choice is effortless and appropriate for education level; completes sentences, occasionally pausing to think; rate and volume are appropriate for interview and setting. Patient reports mood as anxious. Patients affect is congruent with mood. Patient has linear and logical thinking, with no loose associations , tangential thought, thought blocking, concrete thinking, or any other signs of formal thought disorder. Patient denies suicidal and homicidal ideation, and denies hallucinations and delusions. Patient appears to be a reliable historian with poor judgement and poor insight into current condition. Patient has no apparent dysfunction in recent or remote memory noted, and no evidence of gross cognitive dysfunction noted at any point during the interview. - Time Spent With Patient Time Spent With Patient: 30 minutes, met with patient individually and met with patient and treatment team. - Pending Discharge Pending Discharge Within 24 Hours: No Pending Discharge Within 48 Hours: No ICD10 Worksheet Patient Problems: Problems Problem Status Onset Severe major depression without psychotic features Acute
[2018-05-09] MEDS ORDERED: LORazepam 0.5 MG TAB PO PRN (11:11)
--- NOTE | 2018-05-09 11:33 | ASMTBHDC ---
Notes Note: Notes: CC called [employer] Program at [facility] and spoke with Genna programmer business. Per Genna ct. is eligible for the program. She requested ct. call her to start enrollment process. CC spoke with ct. and provided the information but ct. said that she cannot make the call as she is too overwhelmed CC suggested calling with ct. but she refused. Date Signed: 05/09/2018 11:31 AM Electronically Signed By:Haleigh Arshad
[2018-05-09] MEDS ORDERED: LOPERAMIDE HCL 2 MG CAP PO PRN (13:43)
[2018-05-09] MEDS: amLODIPine BESYLATE 5 MG TAB PO SCH (14:26)
[2018-05-09] MEDS: VALSARTAN 160 MG TAB PO SCH (14:26)
[2018-05-09] MEDS: ATORVASTATIN CALCIUM 10 MG TAB PO SCH (16:45)
[2018-05-10] MEDS: LEVOTHYROXINE 100 MCG TAB PO SCH (06:11)
[2018-05-10 07:47] VITALS: BP 146/65
[2018-05-10] MEDS: ESCITALOPRAM OXALATE 10 MG TAB PO SCH (08:28)
--- NOTE | 2018-05-15 11:19 | BDS ---
[f rep st] BEHAVIORAL HEALTH DISCHARGE SUMMARY REASON FOR ADMISSION: The patient presented to the emergency department with complaints of worsening severe depression, hopelessness, insomnia, and reporting being grief stricken. The patient reported she did not feel safe going home by herself. The patient was admitted involuntarily on an M1 hold d ue to being a danger to herself and was admitted for safety, crisis stabilization, and medication frankie luation. ADMITTING DIAGNOSES: 1. Severe major depression. 2. Generalized anxiety disorder. ADMISSION PHYSICAL EXAM: The patient was seen on 05/07/2018 for internal medicine consultation for m edical clearance for inpatient psychiatric hospitalization and treatment. The patient was medically cleared for inpatient psychiatric hospitalization and treatment. For further details, please refer t o consultation note dated 05/07/2018. ADMISSION LABS: 1. CBC within normal limits except eosinophils were low at 0.5. 2. BMP within normal limits except potassium was low at 3.1, glucose was elevated at 105. Potassium level repeated through a BMP on 05/08/2018, and potassium level was within normal limits at that sarah e at 4.2. 3. Hemoglobin A1c elevated at 6.4. 4. Estimated average glucose elevated at 137. 5. within normal limits except total bilirubin was elevated at 1.6, unconjugated bilirubi n was elevated at 1.2. 6. Lipid panel within normal limits except triglycerides were elevated at 138, cholesterol risk fact or elevated at 1.6, LDL cholesterol calculated elevated at 141, LDL risk factor elevated at 1.2, VLDL cholesterol elevated at 28, non-HDL cholesterol elevated at 169, HDL cholesterol low at 38, LDL/HDL ratio elevated at 3.72, cholesterol/HDL ratio elevated at 5.45. 7. TSH low at 0.026. 8. Free T4 elevated at 3.02. 9. T4 elevated at 18.80. 10. Free T3 within normal limits at 4.85. 11. Total T3 within normal limits at 1.320. 12. T3 uptake elevated at 42.2. 13. Toxicology screen non-negative for benzodiazepine, negative for all other substances of abuse, a nd negative for ethyl alcohol. MAJOR PROCEDURES OR TESTS: None. HOSPITAL COURSE: The most prominent symptoms and behaviors while the patient was here were reports o f severe anxiety and depression. Treatment modalities utilized were milieu and group therapy. Lexap ro 10 mg p.o. daily was started to target mood symptoms, was tolerated with no report of side effects . The patient was found to be positive for norovirus and C difficile and was transferred to the [facility]. CONDITION AT DISCHARGE: DISCHARGE DIAGNOSES: CURRENT MEDICATIONS: After reviewing options, risks, and benefits with the patient, the patient agre es to continue: 1. Tylenol 650 mg p.o. q.4 hours p.r.n. 2. Norvasc 5 mg p.o. daily at 1200. 3. Lipitor 10 mg p.o. daily at 1700. 4. Lexapro 10 mg p.o. daily. 5. Synthroid 100 mcg p.o. daily at 0600. 6. Valsartan 320 mg p.o. daily. 7. Vancomycin 125 mg p.o. q.6 hours. DISPOSITION: Patient left hospital independently and voluntarily and was transferred to the [facility] where she was treated for norovirus and C difficile. FOLLOWUP: M1 ADMITTING LEGAL COURSE: Patient was admitted involuntarily on an M1 hold. The patient did become voluntary during her stay and patient discharged and was transferred independently and voluntarily t o the [facility]. ATTITUDE AT TIME OF DISCHARGE: LABS AND STUDIES: There were no pending labs or studies at time. ADVANCE DIRECTIVES: There were no advance directives on file, and patient was full code during this hospitalization. /[id number]/MODL
== END 2018-05-10 10:05 | disposition home or self-care (01) | DRG 880 ==
LOC: BBEH 05-07 00:47
PROVIDERS: ADMIT Psychiatry & Neurology Behavioral Neurology & Neuropsychiatry; ATTEND Psychiatry & Neurology Behavioral Neurology & Neuropsychiatry
DX: F41.8 Other specified anxiety disorders (principal); E87.6 Hypokalemia; E03.9 Hypothyroidism, unspecified; I10 Essential (primary) hypertension; E78.00 Pure hypercholesterolemia, unspecified; E66.3 Overweight; R73.03 Prediabetes
CPT/HCPCS: 80305; 84479-90; 84480-90; 84481-90; G0480

== ENCOUNTER 2018-05-10 08:48 | Inpatient (IN) | payer OTHER ==
[2018-05-10] MEDS ORDERED: ZOLPIDEM TARTRATE 5 MG TAB PO PRN (08:55)
[2018-05-10] MEDS ORDERED: NS 1,000 ML IV ONE (08:55)
[2018-05-10] MEDS ORDERED: ACETAMINOPHEN 325 MG TAB PO PRN ×2 (08:55→13:30)
[2018-05-10] MEDS ORDERED: ONDANSETRON 4 MG/2 ML VIAL IVP PRN (08:55)
[2018-05-10] MEDS: LR 1,000 ML IV SCH (12:22)
--- NOTE | 2018-05-10 13:06 | PDGENHP ---
History and Physical History and Physical: CC: Diarrhea and tachycardia On the Behavioral Health Unit HISTORY: This patient is transferred from the Behavioral Health Unit over to the medicine unit for management of a diarrheal illness acutely. She was admitted to the Behavioral Health Unit on 05/06 with worsening depression anxiety and not feeling safe at home. She was initially on an M1 hold that apparently is now off the M1 hold on all suicidal precautions and safety precautions. She is not using alcohol or street drugs. While on the mental health unit the patient started having significant diarrhea along with severe nausea. She became tachycardic. There is no fever and it is reported that this no abdominal pain. For these reasons she was transferred to the medical unit. We have done an initial stool test today which shows presence of both norovirus, which is prevalent in our community at this time, as well of C difficile. In talking to her she states that she 1st started having intermittent diarrhea with nausea and feeling tired more than a week ago. She has not eaten anything for a few days has had intermittent dry heaves , no actual emesis, no fever that she knows of. This came up several days after her brother had a very similar illness. Her brothers in the room at this time and he describes having nausea vomiting and diarrhea for 2-3 days followed by feverishness that is all resolved at this point. Neither of them have travel outside the country nor have either of them had any suspicious foods. The patient has not taken any recent antibiotics nor been hospitalized other than as above ROS: A comprehensive 10 system review revealed no other significant findings PAST MEDICAL HISTORY: Chronic depression and anxiety disorder Partial thyroidectomy, on with chronic thyroid replacement therapy Hypercholesterolemia Hypertension on medications FAMILY MEDICAL HISTORY: Substance abuse SOCIAL HISTORY: Originally from [place] Currently living with her brother, [facility] Health Unit notes mention that the brother is an alcohol abuser Has 2 sisters out of state No alcohol or street drug use MEDICATIONS: The patients list has been reconciled by our clinical pharmacist in the EMR. I have reviewed the list and ordered appropriate medicines. PHYSICAL EXAMINATION: Vital Signs: Tachycardic with pulse rates between 100 and 119, otherwise normal vitals without fever Magazine Hand: Examination: General: alert, oriented, good mentation, relaxed Skin: warm, dry, good color, no rash HEENT: normal Neck: no mass or jvd Resps: relaxed Lungs: clear breath sounds Heart: regular, no murmur Abdomen: soft, nondistended, nontender, +BS, no mass Upper Extremities: normal Lower Extremities: no edema, warm No Bleeding or bruising Neurologic: normal speech/language, normal service associate, no focal weakness IV site: looks normal EKG: I reviewed tracing from the study done May 06 in the ER which shows a normal EKG in sinus rhythm at 89 per minute LABORATORY DATA: At time of admission was a bit hypokalemic and has a low TSH at 0.02 with a free T4 at 3.0. Yesterday a repeat chemistry was done showing her CO2 a drop from 26-19 I reviewed all of her other lab studies from this admission ASSESSMENT: * Acute diarrheal illness with norovirus and C diff present and stool - suspect this is an acute neuro virus infection at the C diff is a colonizer but will need to consider treating that since she is very symptomatic * Acute dehydration and tachycardia due to above * Iatrogenic hyperthyroidism in treatment of hypothyroidism * Depression / anxiety with recent concern for self-harm, initially admitted to Behavioral Health Unit, requires ongoing care and monitoring; she had been taken off her M1 hold and other safety precautions at the mental health unit so these will be not reinstituted here but will watch her situation closely PLANS: * Admission to medical unit * IV fluid bolus followed by IV fluid infusion with lactated Ringer's * Isolation for neuro virus and C diff * I think her C diff probably does not represent true infection but given her acute clinical illness will treat for that as it will be hard to differentiate * Continue her current antihypertensives and lipid medications as long as renal function remains good and blood pressures in good range * Hold her thyroid replacement therapy for the moment, recheck TSH in a couple days to look for stability there, resume at lower dose unless there is some concerning factor to change that decision * Anticipate 48-72 hours minimum to get her beyond the point of nausea and diarrhea so that she is able to maintain hydration so will make her inpatient at this time I have reviewed the patient's past medical records as part of this assessment, including all records from her ER visit and her visit over on the mental health unit
[2018-05-10] MEDS ORDERED: clonazePAM 0.5 MG TAB PO PRN (13:30)
[2018-05-10] MEDS: VANCOMYCIN 125 MG/2.5 ML UDL PO SCH ×2 (16:50→20:31)
[2018-05-10] MEDS: ATORVASTATIN CALCIUM 10 MG TAB PO SCH (18:15)
[2018-05-10] MEDS: MELATONIN 3 MG TAB PO SCH (20:36)
[2018-05-11] MEDS: LR 1,000 ML IV SCH ×2 (02:21→14:50)
[2018-05-11] MEDS: VANCOMYCIN 125 MG/2.5 ML UDL PO SCH ×4 (05:05→21:12)
[2018-05-11] MEDS: ESCITALOPRAM OXALATE 10 MG TAB PO SCH (08:22)
--- NOTE | 2018-05-11 09:02 | ASMTCMCOM ---
CM Note CM Note Notes: Chart reviewed. 73 year old female who was admitted to inpatient behavioral health for treatment of depression admitted back to acute inpatient for severe diarrhea and s now positive for norovirus and cdiff. CM to follow for needs.Likely return to inpatient for stabilization of depression. Plan: TBD Date Signed: 05/11/2018 09:02 AM Electronically Signed By:Mi Cooper RN
[2018-05-11] MEDS: VALSARTAN 160 MG TAB PO SCH (12:30)
[2018-05-11] MEDS: amLODIPine BESYLATE 5 MG TAB PO SCH (12:31)
[2018-05-11] MEDS: ATORVASTATIN CALCIUM 10 MG TAB PO SCH (17:03)
--- NOTE | 2018-05-11 18:08 | HOSPPROG ---
Hospitalist Progress Note Assessment/Plan: DIAGNOSES: * Acute diarrheal illness with norovirus and C diff present and stool - suspect this is an acute neuro virus infection at the C diff is a colonizer but will need to consider treating that since she is very symptomatic * Acute dehydration and tachycardia due to above * Iatrogenic hyperthyroidism in treatment of hypothyroidism * Depression / anxiety with recent concern for self-harm, initially admitted to Behavioral Health Unit, requires ongoing care and monitoring; she had been taken off her M1 hold and other safety precautions at the mental health unit so these will be not reinstituted here but will watch her situation closely PLANS: * Continue IV hydration * Antiemetics as needed intravenously which she continues to use today * Continue isolation for neuro virus and C diff * Continue oral vancomycin * Had long discussion with her about depression and anxiety. She does not like the Klonopin and we emphasized that the antidepressant will be the main medicine in [place]. However she needs some help now and we have elected to go with some Xanax which I will order * Continue off thyroid replacement for 1 more day, recheck TSH tomorrow but will likely resume at lower dose tomorrow The patient had many questions and concerns about medications and treatment plan which I addressed with her in great detail today to her satisfaction. SUBJECTIVE: Still having quite a bit of diarrhea, no pain or bleeding and no fever symptoms A lot of nausea, not eating or drinking anything Using IV nausea medicines Remains extremely anxious, states that she did not like the Klonopin and is worried about becoming addicted to that OBJECTIVE Vitals reviewed: Stable without fever Exam: alert oriented skin warm dry color ok resps not labored lungs clear BSs heart regular abd soft nondistended nontender, bowel sounds present limbs warm, no edema iv site ok Laboratory data: Resolution of metabolic acidosis otherwise chemistries look good Objective: Vital Signs Temp Pulse Resp BP Pulse Ox 36.8 C 83 14 159/82 H 95 05/11/18 16:00 05/11/18 16:00 05/11/18 16:00 05/11/18 16:00 05/11/18 16:00 Laboratory Results 05/11/18 04:16 05/10/18 05/11/18 05/12/18 06:59 06:59 06:59 Intake Total 4609 Balance 4609 - Time Spent With Patient Time Spent with Patient: greater than 35 minutes Time Spent with Patient: Greater than 35 minutes spent on this patients care, greater than 50% of time spent counseling, educating, and coordinating care regarding the above mentioned plan. ICD10 Worksheet Patient Problems: Problems Problem Status Onset Generalized anxiety disorder Acute Severe major depression without psychotic features Acute
[2018-05-11] MEDS: ALPRAZolam 0.25 MG TAB PO SCH (21:11)
[2018-05-11] MEDS: MELATONIN 3 MG TAB PO SCH (21:12)
[2018-05-12] MEDS: VANCOMYCIN 125 MG/2.5 ML UDL PO SCH ×4 (05:38→20:54)
[2018-05-12] MEDS: ESCITALOPRAM OXALATE 10 MG TAB PO SCH (09:53)
[2018-05-12] MEDS: ALPRAZolam 0.25 MG TAB PO SCH ×2 (09:53→20:55)
[2018-05-12] MEDS: LR 1,000 ML IV SCH (09:55)
[2018-05-12] MEDS: amLODIPine BESYLATE 5 MG TAB PO SCH (12:24)
[2018-05-12] MEDS: VALSARTAN 160 MG TAB PO SCH (12:24)
[2018-05-12] MEDS: ATORVASTATIN CALCIUM 10 MG TAB PO SCH (17:09)
--- NOTE | 2018-05-12 17:21 | HOSPPROG ---
Hospitalist Progress Note Assessment/Plan: DIAGNOSES: * Acute diarrheal illness with norovirus and C diff present and stool - suspect this is an acute neuro virus infection at the C diff is a colonizer but will need to consider treating that since she is very symptomatic * Acute dehydration and tachycardia due to above * Iatrogenic hyperthyroidism in treatment of hypothyroidism * Depression / anxiety with recent concern for self-harm, initially admitted to Behavioral Health Unit, requires ongoing care and monitoring; she had been taken off her M1 hold and other safety precautions at the mental health unit so these will be not reinstituted here but will watch her situation closely At this time she is still unable to maintain adequate oral hydration despite antiemetics. Will continue IV fluids overnight, hope to DC tomorrow if able to take po better. Seems to have tolerated xanax better than clonopin, may be more that she is doing better after a few days of lexapro or that she is a bit less ill from infection than an actual difference in the meds. j Also she has had another day off thyroid and may be coming closer to euthyroid on replacement. PLANS: * Continue IV hydration * Antiemetics as needed intravenously which she continues to use today * Continue isolation for neuro virus and C diff * Continue oral vancomycin * further discussion/counseling re anxiety and depression today, I reviewed benefits of exercise, sleep hygiene, other nonmedicinal approaches * Continue off thyroid replacement for 1 more day, recheck TSH tomorrow but will likely resume at lower dose tomorrow SUBJECTIVE: diarrhea is slowing, but still using antiemetics and today has only taken in approx 1 cup of po fluid no fever sxs still quite anxious, many questions about how she will be able to manage after leaving hospital OBJECTIVE Vitals reviewed: Stable without fever Exam: alert oriented remains very anxious skin warm dry color ok resps not labored lungs clear BSs heart regular abd soft nondistended nontender, bowel sounds present limbs warm, no edema iv site ok Objective: Vital Signs Temp Pulse Resp BP Pulse Ox 36.7 C 95 18 172/79 H 92 05/12/18 16:21 05/12/18 16:21 05/12/18 16:21 05/12/18 16:21 05/12/18 16:21 Laboratory Results 05/11/18 04:16 05/11/18 05/12/18 05/13/18 06:59 06:59 06:59 Intake Total 4609 1100 Balance 4602 1100 ICD10 Worksheet Patient Problems: Problems Problem Status Onset Generalized anxiety disorder Acute Severe major depression without psychotic features Acute
[2018-05-12] MEDS: MELATONIN 3 MG TAB PO SCH (20:55)
[2018-05-13] MEDS: VANCOMYCIN 125 MG/2.5 ML UDL PO SCH ×4 (05:01→20:30)
[2018-05-13] MEDS: LR 1,000 ML IV SCH (05:01)
[2018-05-13] MEDS: ESCITALOPRAM OXALATE 10 MG TAB PO SCH (07:56)
[2018-05-13] MEDS: ALPRAZolam 0.25 MG TAB PO SCH ×2 (07:56→20:31)
--- NOTE | 2018-05-13 08:19 | PDMN ---
Medical Necessity Medical necessity: MCG: M123 dehydration: A-1 day: pt with norovirus and C diff, tachycardia, diarrhea- Pt still unable to maintain hydration, after full day of observation, despite antiemetic's status changed to INPT 05/11/18 for ongoing med nec. further monitoring and tx of dehydration req IVF and antiemetic 's.
[2018-05-13] MEDS: amLODIPine BESYLATE 5 MG TAB PO SCH (13:15)
[2018-05-13] MEDS: VALSARTAN 160 MG TAB PO SCH (13:15)
[2018-05-13] MEDS: ATORVASTATIN CALCIUM 10 MG TAB PO SCH (16:25)
--- NOTE | 2018-05-13 16:33 | ASMTCMCOM ---
CM Note CM Note Notes: Met with Jim who eagerly shares her situation with me. 73 year old female who is living with younger brother who had an alcohol addiction. She is extremly anxious about her finances and what her future may hold. She want to be connected to someone and specifically would like a social problems specialist to help her navigate her needs. She has no money and no reitement benefits. She shares she makes just over 3,000.00 a month working at the [email or web address]. I will look into the senior services available to her and f/u tomorrow. Plan: TBD Date Signed: 05/13/2018 04:32 PM Electronically Signed By:Mi Cooper RN
--- NOTE | 2018-05-13 18:30 | HOSPPROG ---
Hospitalist Progress Note Assessment/Plan: 73-year-old woman transferred here from Behavioral Health Unit with onset of acute diarrheal illness while she was on the unit. DIAGNOSES: * Acute diarrheal illness with norovirus and C diff present and stool - suspect this is an acute neuro virus infection and the C diff is a colonizer but have treated for C diff due to her severe symptoms * Acute dehydration and tachycardia due to above * Iatrogenic hyperthyroidism in treatment of hypothyroidism; if she is symptomatic from this at all it is likely in the way of worsening anxiety * Depression / anxiety with recent concern for self-harm, initially admitted to Behavioral Health Unit and transferred from there to this unit with onset of diarrhea. This is a fairly severe and chronic problem for her and she has had counseling and treatments in the past but was not on any medication or engage with any counseling at the time of admission. She was admitted voluntarily at her request Behavioral Health Unit, initially on mental health hold but that was discontinued after the 1st day there. GI ILLNESS: Her norovirus illness is resolving nicely at this point and I think we can discharge her tomorrow to home. MENTAL HEALTH ISSUES: Her anxiety and depression are starting to improve noticeably, and at this time she feels like she will be able to comfortable go home tomorrow. Current new treatments include: -Lexapro -p.r.n. Xanax 0.25 twice daily - patient would like very much to try and taper this down to an occasional p.r.n. Use as soon as she is able and I have told her agree with that the -decreased dose of levothyroxine after holding that for a couple of days I have also discussed the importance of exercise, sun exposure, counseling, and a range of other non medicinal therapies that she should engage in to manage her depression and anxiety. I have asked case management here to contact case management at the Behavioral Health Unit in order to to get referrals for the patient for outpatient therapy for her anxiety and depression as she gets ready to go home likely tomorrow THYROID: Will resume lower dose of 100 mcg Synthroid today She will need outpatient follow-up in retesting in a few weeks SUBJECTIVE: Still some loose stools but they are getting notably better, and still with nausea but has been able to eat small amount of food and drink a slight bit more fluid today. no fever sxs Less anxious, again many questions about how she will be able to manage after leaving hospital OBJECTIVE Vitals reviewed: Stable without fever Exam: alert oriented, noticeably less anxious skin warm dry color ok resps not labored lungs clear BSs heart regular abd soft nondistended nontender, bowel sounds present limbs warm, no edema iv site ok Lab data: Repeat TSH is now in measurable range though still a bit low Objective: Vital Signs Temp Pulse Resp BP Pulse Ox 36.7 C 81 18 162/75 H 89 L 05/13/18 16:33 05/13/18 16:33 05/13/18 16:33 05/13/18 16:33 05/13/18 16:33 Laboratory Results 05/11/18 04:16 05/12/18 05/13/18 05/14/18 06:59 06:59 06:59 Intake Total 1100 1300 Output Total 800 Balance 1100 500 ICD10 Worksheet Patient Problems: Problems Problem Status Onset Generalized anxiety disorder Acute Severe major depression without psychotic features Acute
[2018-05-13] MEDS: MELATONIN 3 MG TAB PO SCH (20:31)
[2018-05-14] MEDS: VANCOMYCIN 125 MG/2.5 ML UDL PO SCH ×2 (05:34→11:10)
[2018-05-14] MEDS ORDERED: LEVOTHYROXINE 100 MCG TAB PO SCH (06:00)
[2018-05-14] MEDS: ALPRAZolam 0.25 MG TAB PO SCH (08:35)
[2018-05-14] MEDS: ESCITALOPRAM OXALATE 10 MG TAB PO SCH (08:35)
[2018-05-14] MEDS ORDERED: ALPRAZolam 0.25 MG TAB PO PRN (09:44)
--- NOTE | 2018-05-14 10:16 | ASMTLACE ---
TATIANAE Length of stay for Answers: 2 days current admission Comorbidities - select Answers: Other Notes: HTN all that apply # of Emergency department Answers: 1-2 visits in the last 6 months Social determinants Answers: Mental health diagnosis (anxiety, depression, pers onality disorders, etc.) Score: 7 Date Signed: 05/14/2018 10:15 AM Electronically Signed By:Mi Cooper RN
--- NOTE | 2018-05-14 10:20 | ASMTCMCOM ---
CM Note CM Note Notes: CM contacted Behavioral health CM regarding follow up for Jim. She is to see her PCP next Saturday at 1pm and needs to plan to f/u with Ifrah Posada for her mental health care. She has been medically cleared for discharge to home and physician is ensuring this plan is agreeable to behavioral health. Patient encouraged to contact [facility] agency on aging for resource guidance to help her meet her needs. PLan: Likely home with follow up as above. Date Signed: 05/14/2018 10:20 AM Electronically Signed By:Mi Cooper RN
[2018-05-14] MEDS: amLODIPine BESYLATE 5 MG TAB PO SCH (11:09)
[2018-05-14] MEDS: VALSARTAN 160 MG TAB PO SCH (11:09)
[2018-05-14 11:12] VITALS: BP 135/68
--- NOTE | 2018-05-14 23:45 | GDS ---
[f rep st] DISCHARGE SUMMARY DISCHARGE DIAGNOSES: 1. Norovirus. 2. Clostridium difficile colitis. 3. Anxiety. 4. Hypothyroidism. HISTORY: The patient is a 73-year-old female who was at the behavior health unit being treated for a cute anxiety issues when she developed acute-onset diarrhea. She was transferred to the hospital, an d stool had both C difficile and norovirus. Although we do suspect the norovirus is the more likely culprit of the diarrhea and the C difficile is a colonizer, we did go ahead and treat with a course o f oral vancomycin. She has improved. She was nearing the end of her psychiatric hospitalization, an d it was not felt necessary that she return back to inpatient psych, and she was okay to discharge ho al on Lexapro. She will discuss with her primary care provider and outpatient psychiatric support wh ether or not a prescription for Xanax to abort panic attacks may be indicated. DISCHARGE MEDICATIONS: Please see computerized record for full detailed list. NEW MEDICATIONS: 1. Vancomycin 125 mg p.o. q.6 hours for 10 more days. 2. Lexapro 10 mg p.o. daily. 3. Levothyroxine dose decreased to 100 mcg p.o. daily for TSH being over suppressed. ADDITIONAL DISCHARGE INSTRUCTIONS: Follow up with primary care Dr. Zia Diego and Ifrah Holley her therapist. Greater than 30 minutes' time was spent arranging this discharge. Patient was seen and examined by dov cabrera on the day of discharge. /[id number]/MODL
== END 2018-05-14 11:28 | disposition home or self-care (01) | DRG 392 ==
LOC: F3N 10:32 → OBSVTOIN 05-11 18:08
PROVIDERS: ADMIT Internal Medicine; ATTEND Internal Medicine
DX: A08.11 Acute gastroenteropathy due to Norwalk agent (principal); A04.72 Enterocolitis due to Clostridium difficile, not specified as recurrent; F41.9 Anxiety disorder, unspecified; E89.0 Postprocedural hypothyroidism; I10 Essential (primary) hypertension; F32.9 Major depressive disorder, single episode, unspecified; E78.00 Pure hypercholesterolemia, unspecified; E86.0 Dehydration
CPT/HCPCS: G0378

== ENCOUNTER 2018-05-16 18:14 | Observation (INO) | payer OTHER ==
[2018-05-16] MEDS ORDERED: oxyCODONE IR 5 MG TAB PO PRN (21:11)
[2018-05-16] MEDS ORDERED: HYDROmorphONE/DILAUDID 2 MG/ML INJ IVP PRN (21:11)
[2018-05-16] MEDS ORDERED: ACETAMINOPHEN 325 MG TAB PO PRN ×2 (21:11→21:49)
[2018-05-16] MEDS ORDERED: ONDANSETRON DISINTEGRATING 4 MG TAB PO PRN (21:11)
[2018-05-16] MEDS ORDERED: ONDANSETRON 4 MG/2 ML VIAL IVP PRN (21:11)
--- NOTE | 2018-05-16 21:32 | PDGENHP ---
History and Physical - Chief Complaint diarrhea, dizziness - History of Present Illness 73yo F with HTN, anxiety, recent hospitalization for norovirus and C diff colitis who was discharged 2 days ago presents from her PCP's office for ongoing diarrhea, hypotension and hypokalemia. Wasn't doing well at home. Had 2- 3 loose, watery bowels yesterday. Was feeling very dizzy and lightheaded, especially when standing. Had an egg and some water but very minimal PO intake. Went to PCP's office today for post-hospital follow up and had explosive diarrhea at his office. This was associated with chills and nausea. No abdominal pain. BP check in his office was 89/54 and decreased to SBP in the 70s per report. She was transferred to the local ED where her K was found to be 2.7. Her BP had spontaneously improved back into the normal range at that time. She is currently resting comfortably in bed. I reviewed records from recent hospital stay 05/11-. She was actually initially admitted to [address] [place] [address] health unit where was being treated for worsening depression/anxiety. She was initially on M1 hold but this was lifted. She then developed diarrhea and was transferred here on 05/11 when she was diagnosed with norovirus and C diff and was being treated with PO vancomycin which she has been taking. This is her first episode of C diff. History Information - Allergies/Home Medication List Allergies/Adverse Reactions: codeine Allergy (Verified 05/06/18 13:37) Penicillins Allergy (Verified 05/06/18 13:37) Home Medications: amLODIPine BESYLATE [Norvasc 10 mg (*)] 10 mg PO DAILY 05/16/18 [Last Taken 05/03] I have personally reviewed and updated: family history, medical history, social history, surgical history - Past Medical History Additional medical history: depression/anxiety, hypothyroidism, HTN, norovirus, C diff colitis - Surgical History Additional surgical history: no abdominal surgeries - Family History Positive for: non-pertinent - Social History Smoking Status: Never smoked Alcohol Use: None Drug Use: None Additional social history: Lives with brother. Review of Systems Review of Systems: ROS: 10pt was reviewed & negative except for what was stated in HPI & below Physical Exam Physical Exam: Constitutional: no apparent distress, appears nourished, not in pain Eyes: PERRL, anicteric sclera, EOMI Ears, Nose, Mouth, Throat: moist mucous membranes, hearing normal, ears appear normal, no oral mucosal ulcers Cardiovascular: regular rate and rhythym, no murmur, rub, or gallop, No edema Respiratory: no respiratory distress, no rales or rhonchi, clear to auscultation Gastrointestinal: normoactive bowel sounds, soft, non-tender abdomen, no palpable masses Genitourinary: no bladder fullness, no bladder tenderness Skin: warm, normal color, no rashes or abrasions, no fluctuance, no induration, No mottled Musculoskeletal: full muscle strength, no muscle tenderness, normal joint ROM, no joint effusions Neurologic: AAOx3 Psychiatric: interacting appropriately, not anxious, not encephalopathic, thought process linear Assessment & Plan Assessment: 73yo F with HTN, anxiety, recent hospitalization for norovirus and C diff colitis who was discharged 2 days ago presents from her PCP's office for ongoing diarrhea, hypotension and hypokalemia. Plan: 1. C diff colitis: Still symptomatic. Not septic appearing. - Continue PO vancomycin 125mg q6h - If clinically worsening, consider abdominal CT 2. Episodic hypotension: I suspect component of vagal response as this occurred immediately after bowel movement per report and now she is normotensive without intervention. - Hold valsartan, continue amlodipine and monitor 3. Hypokalemia: Due to poor PO intake - Replete per protocol 4. Depression/anxiety: No SI. - Continue home meds 5. Hypothyroidism: Recent TSH low, free T4 high and thyroid replacement dose reduced. - Continue LT4 at 100mcg/day - Needs thyroid studies repeated in 4-6 weeks 6. HTN: Normotensive on admit - As above, plan to hold valsartan. Consider alternative anti-hypertensive as patient dislikes this medication VTE ppx: LMWH Code: full Diet: regular as tolerates Dispo: Admit under observation
[2018-05-16] MEDS ORDERED: PROTOCOL POTASSIUM 1 DOSE MISC PRN (21:50)
[2018-05-16] MEDS: NS W/ 20 KCl/L 1,000 ML IV SCH (22:23)
[2018-05-16] MEDS: VANCOMYCIN 125 MG/2.5 ML UDL PO SCH (22:23)
[2018-05-17] MEDS: VANCOMYCIN 125 MG/2.5 ML UDL PO SCH ×4 (05:35→21:52)
[2018-05-17] MEDS: LEVOTHYROXINE 100 MCG TAB PO SCH (05:35)
[2018-05-17 05:42] LABS: PLATELET COUNT 348 10^3/uL (150-400)
[2018-05-17] MEDS: ESCITALOPRAM OXALATE 10 MG TAB PO SCH (07:47)
[2018-05-17] MEDS: ENOXAPARIN 40 MG/0.4 ML SYR SC SCH (07:56)
[2018-05-17] MEDS: NS W/ 20 KCl/L 1,000 ML IV SCH (08:04)
--- NOTE | 2018-05-17 09:46 | ASMTCMCOM ---
CM Note CM Note Notes: Pt is a 73 y/o woman who had been on [facility]'s behavioral unit from 05/06/2018 to 05/10/2018 due to depression and anxiety. She was transferred to [facility]'s ED on 05/10/2018 needing management of an acute diarrheal illness. She was home 05/14/2018 and instructed to take her Vancomycin for 10 more days. Yesterday she returned to the ED with similar symptoms requiring admittance to the hospital. She was discharged last time with a follow-up appt with her PCP and plans to follow-up with Ifrah Posada for mental health care. CM will follow for again arranging for this follow-up if it remains appropriate and will follow for changes. D/C Plan: Anticipate independent with PCP and follow-up. Date Signed: 05/17/2018 09:45 AM Electronically Signed By:Isabella Montaño
[2018-05-17] MEDS ORDERED: POTASSIUM CL 10 MEQ TAB PO ONE (10:29)
--- NOTE | 2018-05-17 12:20 | HOSPPROG ---
Hospitalist Progress Note Assessment/Plan: 73yo F with HTN, anxiety, recent hospitalization for norovirus and C diff colitis who was discharged 2 days ago presents from her PCP's office for ongoing diarrhea, hypotension and hypokalemia. First encounter, chart reviewed. *C diff colitis - Continue PO vancomycin 125mg q6h -said she isn't able to eat much, drinking without difficulty *Episodic hypotension - likely a vagal response after a bowel movement - Hold valsartan, continue amlodipine and monitor * Hypokalemia: Due to poor PO intake - Replete per protocol *Depression/anxiety - Continue home meds -she is requesting one dose of Xanax-told her this is only once and will not dc her on this medication *Hypothyroidism: Recent TSH low, free T4 high and thyroid replacement dose reduced. - Continue LT4 at 100mcg/day - Needs thyroid studies repeated in 4-6 weeks *HTN -bp is stable - a bit elevated -resumed amlodipine, she dislikes Valsartan and is concerned she was lightheaded at home *plan: Ofelia said she is unable to eat, is under severe stress at home, worried about paying bills, her brother lives w her and he is an alcoholic, He does help w bills. Still not eating out of fear of diarrhea. She will require another midnight stay to monitor. Hopefully, will be better by tomorrow to go home Subjective: Ofelia is teary eyed, says she is feeling poorly and doesn't think she is ready to be discharged. Objective: Vital Signs Temp Pulse Resp BP Pulse Ox 36.7 C 91 18 143/81 H 95 05/17/18 12:00 05/17/18 12:00 05/17/18 12:00 05/17/18 12:00 05/17/18 12:00 Laboratory Results 05/17/18 04:29 05/17/18 04:29 05/16/18 05/17/18 05/18/18 05:59 05:59 05:59 Intake Total 710 Balance 710 - Physical Exam Constitutional: obese Eyes: PERRL Ears, Nose, Mouth, Throat: hearing normal Cardiovascular: regular rate and rhythym Respiratory: no respiratory distress Gastrointestinal: normoactive bowel sounds Skin: warm Musculoskeletal: generalized weakness Neurologic: AAOx3 Psychiatric: anxious ICD10 Worksheet Patient Problems: Problems Problem Status Onset Generalized anxiety disorder Acute Severe major depression without psychotic features Acute
[2018-05-17] MEDS ORDERED: ALPRAZolam 0.25 MG TAB PO ONE (14:08)
[2018-05-17] MEDS ORDERED: ATORVASTATIN CALCIUM 10 MG TAB PO SCH (17:00)
[2018-05-18] MEDS: VANCOMYCIN 125 MG/2.5 ML UDL PO SCH ×2 (05:30→11:34)
[2018-05-18] MEDS: LEVOTHYROXINE 100 MCG TAB PO SCH (05:30)
[2018-05-18] MEDS ORDERED: POTASSIUM CL 10 MEQ TAB PO ONE (05:54)
[2018-05-18] MEDS: ESCITALOPRAM OXALATE 10 MG TAB PO SCH (06:55)
--- NOTE | 2018-05-18 08:30 | HOSPPROG ---
Hospitalist Progress Note Assessment/Plan: 73yo F with HTN, anxiety, recent hospitalization for norovirus and C diff colitis who was discharged 2 days ago presents from her PCP's office for ongoing diarrhea, hypotension and hypokalemia. *C diff colitis - Continue PO vancomycin 125mg q6h -said she isn't able to eat much, drinking without difficulty *Episodic hypotension -non further - likely a vagal response after a bowel movement - Hold valsartan, continue amlodipine and monitor * Hypokalemia: Due to poor PO intake - Replete per protocol -encouraged her to eat bananas and sweet potatoes *Depression/anxiety - Continue home meds - this is really impacting her, on Lexapro, but needs time for this to hlep *Hypothyroidism: Recent TSH low, free T4 high and thyroid replacement dose reduced. - Continue LT4 at 100mcg/day - Needs thyroid studies repeated in 4-6 weeks *HTN -bp is stable -resumed amlodipine, she dislikes Valsartan and is concerned she was lightheaded at home *plan: dc home, work excuse since she is having issues w some loose stools Subjective: Jim says she is feeling poorly, drinking fluids but not much of an appetite. Had 2 small yellowish formed stools. Objective: Vital Signs Temp Pulse Resp BP Pulse Ox 36.6 C 86 16 133/73 H 94 05/18/18 04:00 05/18/18 04:00 05/18/18 04:00 05/18/18 04:00 05/18/18 04:00 Laboratory Results 05/17/18 04:29 05/18/18 05:00 05/17/18 05/18/18 05/19/18 05:59 05:59 05:59 Intake Total 710 722 Balance 710 722 - Physical Exam Constitutional: no apparent distress, not in pain, obese Eyes: PERRL Ears, Nose, Mouth, Throat: hearing normal Respiratory: no respiratory distress Skin: warm Musculoskeletal: full muscle strength Neurologic: AAOx3 Psychiatric: anxious ICD10 Worksheet Patient Problems: Problems Problem Status Onset Generalized anxiety disorder Acute Severe major depression without psychotic features Acute
[2018-05-18 08:46] VITALS: BP 131/66
[2018-05-18] MEDS: ENOXAPARIN 40 MG/0.4 ML SYR SC SCH (08:48)
--- NOTE | 2018-05-18 11:19 | GDS ---
[f rep st] DISCHARGE SUMMARY DISCHARGE DIAGNOSES: 1. Clostridium difficile colitis. 2. Episodic hypotension. 3. Hypokalemia. 4. Depression and anxiety. 5. Hypothyroidism. 6. Hypertension. HISTORY OF PRESENT ILLNESS: Briefly, the patient is a 73-year-old female with hypertension, anxiety, who was recently hospitalized for norovirus and C difficile colitis. She also was seen at [facility] for ongoing anxiety and depression. She came to the ER because she was worried about not gett ing enough intake and having ongoing diarrhea. HOSPITAL COURSE: 1. Clostridium difficile colitis. To continue the p.o. vancomycin. She is drinking quite well, not e ating that much. She has had no further diarrhea, but 2 small semi-formed stool today. 2. Episodic hypotension noted during her stay. This was likely a vagal response. 3. Hypokalemia due to poor intake. I encourage her to take bananas and sweet potatoes. 4. Depression, anxiety. I suspect this is the main underlying issue with the patient. Encouraged her to stay on her Lexapro and get outside and get some walking in. 5. Hypothyroidism. She had a recent low TSH. She needs to get repeat thyroid studies in 6 weeks. 6. Hypertension. Blood pressure is stable. DISCHARGE CONDITION: Stable. Blood pressure is 131/66, heart rate is 76, respiratory rate of 16, O2 sats on room air 96%, temperature 36.4 Celsius. MEDICATIONS AT DISCHARGE: Please see the EMR. DISCHARGE INSTRUCTIONS: 1. It is okay for her to stop the valsartan. She feels that this is impacting her blood pressure and to follow up with her primary care doctor. 2. To continue the vancomycin. 3. She can get vitamin D over the counter. 4. Recommending she go outside every day for 20 minutes and to start walking at 5 minutes intervals. 5. Eat bananas and sweet potatoes due to low potassium levels. /[id number]/MODL
--- NOTE | 2018-05-18 19:47 | ASMTLACE ---
ADELA Length of stay for Answers: 1 day current admission Acuity / Level of Answers: No Care: Did the patient have an inpatient admission? Comorbidities - select Answers: Other Notes: HTN, hypothyroidsim all that apply # of Emergency department Answers: 0 visits in the last 6 months Social determinants Answers: Mental health diagnosis (anxiety, depression, pers onality disorders, etc.) Score: 5 Date Signed: 05/18/2018 07:46 PM Electronically Signed By:Maria Elena Dunn RN
--- NOTE | 2018-05-18 19:56 | ASDISCHSUM ---
Discharge Information Plan Status:Home with No Needs Medically Cleared to Leave:05/17/2018 Discharge Date:05/18/2018 12:20 PM CM D/C Disposition:Home, Routine, Self-Care ADT D/C Disposition:Home, Routine, Self-Care Projected Discharge Date:05/18/2018 12:20 PM Transportation at D/C:Family Discharge Delay Reason: Follow-Up Date:05/18/2018 12:20 PM Discharge Slot:2 - 12:01 pm - 18:00 pm Final Diagnosis:C-diff colitis, episodic hypotension, hypokalemia, depression, anxiety, hypothyroidi sm, hypertension Placement Information Patient Contact Information Contact Name:DESHAWN Relationship: Address:[address] [place] Alternate Phone: [facility]/Zip Code:[place] [address] Email: Financial Information Financial Class:BCOP Primary Plan Desc:BRANT N[employer]ES [employer] Primary Plan Number:[id number] Secondary Plan Desc: Secondary Plan Number: Assessment Information LACE LACE Length of stay for Answers: 1 day current admission Acuity / Level of Answers: No Care: Did the patient have an inpatient admission? Comorbidities - select Answers: Other Notes: HTN, hypothyroidsim all that apply # of Emergency department Answers: 0 visits in the last 6 months Social determinants Answers: Mental health diagnosis (anxiety, depression, pers onality disorders, etc.) Score: 5 Date Signed: 05/18/2018 07:46 PM Electronically Signed By:Maria Elena Dunn RN [facility] CM Progress Note CM Note CM Note Notes: Pt is a 73 y/o woman who had been on [facility]'s behavioral unit from 05/06/2018 to 05/10/2018 due to depression and anxiety. She was transferred to [facility]'s ED on 05/10/2018 needing management of an acute diarrheal illness. She was home 05/14/2018 and instructed to take her Vancomycin for 10 more days. Yesterday she returned to the ED with similar symptoms requiring admittance to the hospital. She was discharged last time with a follow-up appt with her PCP and plans to follow-up with Ifrah Posada for mental health care. CM will follow for again arranging for this follow-up if it remains appropriate and will follow for changes. D/C Plan: Anticipate independent with PCP and follow-up. Date Signed: 05/17/2018 09:45 AM Electronically Signed By:Isabella Montaño Case Management Discharge Plan Note Case Management Discharge Discharge Order Complete? Answers: Yes Patient to Obtain Answers: Independently Medications Transportation Arranged Answers: Taxi - Voucher Transport will Pick (Date 05/18/2018 12:00 AM & Time) EMTALA Complete Answers: No Notes: N/A Case Management Transport Answers: No Notes: N/A Form Complete Faxed Final Orders Answers: No Notes: N/A Agency/Facility Transfer Answers: No Notes: N/A Report Printed & Faxed to Receiving Agency Family Notified Answers: No Notes: Pt denied wishing to alert family. Discharge Comments Notes: Reviewed chart, spoke with Kalie Fernandes NP regarding discharge plan of care, pt's progress. Per Kalie, pt to discharge home independently with no identified needs today. Met with pt to discuss discharge. Pt reports that she lives with her brother, but her brother is unable to assist with transport. Pt requesting cab voucher. Pt reports that she has some money, but is unable to afford a taxi. Pt reports that she is unable to ride the bus. Spoke with FERDINAND Condon. Per [place], pt denies ability to get home. [employer] called on pt's behalf. Taxi voucher provided. Pt instructed to follow up as directed. No IM/REBOLLAR form signed, not applicable. CM available for any further issues or concerns. Discharge Plan: Home independently Date Signed: 05/18/2018 07:55 PM Electronically Signed By:Maria Elena Dunn RN Intervention Information Intervention Type:Transportation Date of Service:05/18/2018 07:55 PM Patient Type:Observation Staff Member:FERDINAND Dunn Taylor Hours: Discipline: Severity: Comment:Taxi cab voucher provided.
== END 2018-05-18 12:20 | disposition home or self-care (01) ==
LOC: F3E 21:05
PROVIDERS: ADMIT Internal Medicine; ATTEND Family Medicine
DX: A04.72 Enterocolitis due to Clostridium difficile, not specified as recurrent (principal); I95.9 Hypotension, unspecified; E87.6 Hypokalemia; F41.8 Other specified anxiety disorders; E03.9 Hypothyroidism, unspecified; I10 Essential (primary) hypertension
CPT/HCPCS: G0378 ×2; J1650